=== PATIENT | female | born 1940 | race Asian ===

== ENCOUNTER 2021-09-15 10:01 | Inpatient (IN) | payer OTHER ==
[~2021-09-15] VITALS: Ht 165.1 cm; Wt 59.9 kg
--- NOTE | 2021-09-15 10:15 | NUR ---
[id number] FOR NOTED MORE ALTERED THAN NORMAL. LKW 0900. BG 107 QUILL LAYER PER REPORT, WENT BACK TO BED S/P BREAKFAST AND IS NOT RESPONDING TO STAFF. THE PATIENT IN ROOM AIR. RESPIRATION REGULAR AND UNLABORED. ATTACHED TO THE MONITOR. DR PRUITT AT THE BEDSIDE.
[2021-09-15] MEDS ORDERED: QUET25TA PO (10:17)
[2021-09-15] MEDS ORDERED: GABA-532 PO (10:17)
[2021-09-15] MEDS ORDERED: ALEN70TA80 PO (10:17)
[2021-09-15] MEDS ORDERED: DIGO125T PO (10:17)
[2021-09-15] MEDS ORDERED: MEMA10TA PO (10:17)
[2021-09-15] MEDS ORDERED: PRAV20TA4 PO (10:17)
[2021-09-15] MEDS ORDERED: BUPR150T10 PO (10:17)
[2021-09-15] MEDS ORDERED: CALC1TAB30 PO (10:17)
[2021-09-15] MEDS ORDERED: METO25TA20 PO (10:17)
[2021-09-15] MEDS ORDERED: WARF-58 PO (10:17)
--- NOTE | 2021-09-15 10:46 | NUR ---
PT TAKEN TO CT
--- NOTE | 2021-09-15 10:50 | NUR ---
TELE REQUEST SENT
[2021-09-15] MEDS ORDERED: IOHEXOL-350 100 ML VIAL IV ONE (10:51)
[2021-09-15] MEDS ORDERED: IV NS 0.9% 250 ML IV ONE (10:52)
[2021-09-15] MEDS ORDERED: CT SWABBABLE VALVE TRANS SET 1 EA INFUS.SET MC ONE (10:52)
--- NOTE | 2021-09-15 10:59 | NUR ---
THE PATIENT IS BACK FROM CT VIA [facility]
[2021-09-15 12:05] LABS: BASOPHILS % (AUTO) 0.8 % (0.0-2.0); EOSINOPHILS % (AUTO) 1.3 % (0.0-6.0); HEMATOCRIT 43 % (33-45); HEMOGLOBIN 14.4 g/dL (11.5-14.8); LYMPHOCYTES # (AUTO) 1.2 K/uL (0.8-4.8); LYMPHOCYTES % (AUTO) 26.8 % (20.0-44.0); MEAN CORPUSCULAR HGB CONC 33 g/dl (31.0-36.0); MEAN CORPUSCULAR VOLUME 99 fL (82-100); MONOCYTES # (AUTO) 0.4 K/uL (0.1-1.30); MONOCYTES % (AUTO) 9.3 % (2.0-12.0); NEUTROPHILS # (AUTO) 2.7 K/uL (1.8-8.9); NEUTROPHILS % (AUTO) 61.8 % (43.0-81.0); PLATELET COUNT (AUTO) 157 K/uL (150-450); RED BLOOD CELL COUNT(AUTO) 4.38 MIL/uL (4.0-5.2); WHITE BLOOD COUNT (AUTO) 4.4 K/uL (4.3-11.0)
--- NOTE | 2021-09-15 12:06 | NUR ---
URINE COLLECTED AND SENT TO THE LAB
[2021-09-15 12:22] LABS: ALANINE AMINOTRANSFERASE 17 U/L (12-78); ALBUMIN 3.5 g/dL (3.4-5.0); ALKALINE PHOSPHATASE 62 U/L (46-116); ASPARTATE AMINOTRANSFERASE 16 U/L (15-37); BILIRUBIN,DIRECT 0.2 mg/dL (0.0-0.2); BILIRUBIN,TOTAL 0.8 mg/dL (0.2-1.0); CALCIUM, SERUM 8.9 mg/dL (8.5-10.1); CARBON DIOXIDE 30 mmol/L (21-32); CHLORIDE 101 mmol/L (98-107); CREATININE 0.9 mg/dL (0.6-1.3); GLUCOSE 85 mg/dL (74-106); POTASSIUM 4.3 mmol/L (3.5-5.1); SODIUM SERUM 139 mmol/L (136-145); UREA NITROGEN, BLOOD 18 mg/dL (7-18)
[2021-09-15 12:30] LABS: THYROID STIMULATING HORMONE 1.558 uIU/mL (0.358-3.74)
[2021-09-15 12:31] LABS: ACETAMINOPHEN 0 ug/ml (10-30)
[2021-09-15 12:32] LABS: ALCOHOL, BLOOD < 3 mg/dL (0-0)
[2021-09-15 12:54] LABS: SERUM AMMONIA < 10 umol/L (11-32)
[2021-09-15 13:48] LABS: BILIRUBIN,URINE NEGATIVE (NEGATIVE); COLOR,URINE YELLOW (YELLOW); LEUKOCYTE ESTERASE ,URINE NEGATIVE (NEGATIVE); NITRITE, URINE NEGATIVE (NEGATIVE); PROTEIN,URINE NEGATIVE (NEGATIVE); UGLUCOSE NEGATIVE (NEGATIVE); UROBILINOGEN,URINE 0.2 EU/dL (0.2)
--- NOTE | 2021-09-15 14:19 | NUR ---
COVID ANTIGEN SWAB DONE AND SENT TO THE LAB.
--- NOTE | 2021-09-15 14:31 | NUR ---
Mat glover in [place] - 09/15/21 at 1431 by MICHAEL COVID ANTIGEN SWAB DONE AND SENT TO THE LAB
--- NOTE | 2021-09-15 15:16 | NUR ---
MRI OF THE BRAIN WO CONTRAST PER DR HERNANDEZ. THE ORDER IS READ BACK, VERIFIED. NOTED AND CARRIED OUT.
[2021-09-15] MEDS ORDERED: MAG HYDROX/AL HYDROX/SIMETH 30 ML UDC PO PRN (16:00)
[2021-09-15] MEDS ORDERED: ACETAMINOPHEN 325 MG TABLET PO PRN (16:00)
[2021-09-15] MEDS ORDERED: Z GUARD REMEDY 4 OZ OINT TP PRN (16:00)
[2021-09-15] MEDS ORDERED: ONDANSETRON HCL/PF 4 MG/2 ML VIAL IVP PRN (16:00)
[2021-09-15] MEDS: ASPIRIN 81 MG TAB.CHEW PO SCH (17:00)
[2021-09-15] MEDS ORDERED: ASPIRIN EC 81 MG TABLET.DR PO ONE (17:15)
[2021-09-15] MEDS ORDERED: METOPROLOL TARTRATE 25 MG TABLET ONE (17:15)
[2021-09-15] MEDS ORDERED: QUETIAPINE FUMARATE 25 MG TABLET ONE (17:16)
[2021-09-15] MEDS ORDERED: GABAPENTIN 100 MG CAPSULE ONE (17:16)
[2021-09-15] MEDS ORDERED: MEMANTINE HCL 5 MG TABLET ONE (17:17)
[2021-09-15] MEDS ORDERED: BUPROPION XL 150 MG TAB.ER.24 PO ONE (17:17)
[2021-09-15] MEDS: MEMANTINE HCL 5 MG TABLET PO SCH (17:19)
[2021-09-15] MEDS: buPROPion SR 150 MG TABLET.ER PO SCH (17:19)
[2021-09-15] MEDS: GABAPENTIN 100 MG CAPSULE PO SCH (17:19)
[2021-09-15] MEDS: QUETIAPINE FUMARATE 25 MG TABLET PO SCH (17:19)
[2021-09-15] MEDS: METOPROLOL TARTRATE 25 MG TABLET PO SCH (17:20)
--- NOTE | 2021-09-15 19:53 | NUR ---
REPORT GIVEN TO NURSE AUSTIN FOR SHARDA
--- NOTE | 2021-09-15 20:24 | NUR ---
TELE 328-2
--- NOTE | 2021-09-15 20:49 | NUR ---
report given to katarzyna britt
--- NOTE | 2021-09-15 20:53 | NUR ---
TRANSFERRING PT TO 328
--- NOTE | 2021-09-15 20:55 | NUR ---
TELE/DECKHAND SHRIMP BOAT NOTE RECEIVED PT FROM ER VIA GURNEY ACCOMPANIED BY STAFF/RN. PT AWAKE/VERBAL, ALERT TO NAME, HAS DIFFICULTY ANSWERING ORIENTATION QUESTIONS. ABLE TO FOLLOW COMMANDS. RESPIRATIONS EVEN/UNLABORED, TARIQ ROOM AIR WITH O2 SAT 98-99%. AMBULATES WITH SLOW STEADY GAIT, SUPERVISION PROVIDED FOR SAFETY. PROVIDED BEDSIDE COMMODE. NO IV SITE NOTED AT THIS TIME. CONNECTED TO TELE MONITOR, WITH READING A-FIB, HR 63. PT IN NO ACUTE DISTRESS. SAFETY MEASURES IN PLACE, BED IN LOWEST LOCKED POSITION, S/R UPX2, CALL LIGHT WITHIN REACH. WILL CONT TO MONITOR.
[2021-09-15 21:35] VITALS: BP 139/87
[2021-09-15] MEDS ORDERED: PRAVASTATIN SODIUM 20 MG TABLET PO SCH (22:00)
[2021-09-15] MEDS: ATORVASTATIN 40 MG TABLET PO SCH (22:39)
[2021-09-15] MEDS: ENOXAPARIN SODIUM 60 MG/0.6 ML DISP.SYRIN SQ SCH (22:43)
[2021-09-16] VITALS: BP 126/82
[2021-09-16 04:00] VITALS: BP 103/60
--- NOTE | 2021-09-16 06:00 | NUR ---
RN NOTE IV INSERTED TO R-FA #22G WITH GOOD BLOOD RETURN AND TARIQ WELL.
--- NOTE | 2021-09-16 07:00 | NUR ---
PATTERNMAKER WOOD CLOSING NOTES PT AWAKE IN BED, VERBALLY RESPONSIVE, WITH CONFUSION. REORIENTATION PROVIDED. PT DENIES ANY PAIN, DENIES SOB. USED BEDSIDE COMMODE TO VOID. TELE MONITOR READING A-FIB WITH PVC'S. PT IN NO ACUTE DISTRESS. SAFETY MEASURES MAINTAINED. ALL NEEDS ATTENDED TO.
--- NOTE | 2021-09-16 07:15 | NUR ---
OFFICE LEAD OPENING NOTES RECEIVED PATIENT IN BED AWAKE, NO SIGNS OF ACUTE DISTRESS NOTED. ON ROOM AIR TOLERATING WELL, NO SOB NOTED, BREATHING EVEN AND UNLABORED. WITH IV ACCESS ON RFA #20G INTACT AND PATENT, SL. ON TELE MONITOR WITH CURRENT READING OF SR @72. SAFETY MEASURES MAINTAINED. BED LOCKED AND IN LOWEST POSITION, SR UP, CALL LIGHT PLACED WITHIN EASY REACH. WILL CONTINUE TO MONITOR.
[2021-09-16 07:29] LABS: BASOPHILS % (AUTO) 0.7 % (0.0-2.0); EOSINOPHILS % (AUTO) 1.1 % (0.0-6.0); HEMATOCRIT 44 % (33-45); HEMOGLOBIN 14.2 g/dL (11.5-14.8); LYMPHOCYTES # (AUTO) 1.4 K/uL (0.8-4.8); LYMPHOCYTES % (AUTO) 28.5 % (20.0-44.0); MEAN CORPUSCULAR HGB CONC 33 g/dl (31.0-36.0); MEAN CORPUSCULAR VOLUME 99 fL (82-100); MONOCYTES # (AUTO) 0.4 K/uL (0.1-1.30); MONOCYTES % (AUTO) 8.3 % (2.0-12.0); NEUTROPHILS # (AUTO) 2.9 K/uL (1.8-8.9); NEUTROPHILS % (AUTO) 61.4 % (43.0-81.0); PLATELET COUNT (AUTO) 151 K/uL (150-450); WHITE BLOOD COUNT (AUTO) 4.8 K/uL (4.3-11.0)
[2021-09-16 07:49] LABS: CALCIUM, SERUM 9.1 mg/dL (8.5-10.1); CREATININE 0.9 mg/dL (0.6-1.3); MAGNESIUM 2.1 mg/dL (1.8-2.4); POTASSIUM 3.9 mmol/L (3.5-5.1)
[2021-09-16 08:54] VITALS: BP 133/73
[2021-09-16] MEDS: PANTOPRAZOLE 40 MG TABLET.DR PO SCH (08:57)
[2021-09-16] MEDS: CALCIUM CARB 250MG /VITAMIN D 1 UDTAB PO SCH (09:07)
[2021-09-16] MEDS: DIGOXIN 0.125 MG TABLET PO SCH (09:07)
[2021-09-16] MEDS: MEMANTINE HCL 5 MG TABLET PO SCH ×2 (09:07→16:18)
[2021-09-16] MEDS: buPROPion SR 150 MG TABLET.ER PO SCH ×2 (09:07→16:18)
[2021-09-16] MEDS: METOPROLOL TARTRATE 25 MG TABLET PO SCH ×2 (09:08→16:55)
[2021-09-16] MEDS: GABAPENTIN 100 MG CAPSULE PO SCH ×3 (09:08→16:18)
[2021-09-16] MEDS: ASPIRIN 81 MG TAB.CHEW PO SCH (09:09)
[2021-09-16] MEDS: ENOXAPARIN SODIUM 60 MG/0.6 ML DISP.SYRIN SQ SCH ×2 (09:14→21:23)
[2021-09-16] MEDS ORDERED: WARFARIN SODIUM 2.5 MG TABLET PO SCH (11:00)
[2021-09-16] MEDS ORDERED: WARFARIN SODIUM 5 MG TABLET PO SCH (11:00)
[2021-09-16 13:01] VITALS: BP 112/55
--- NOTE | 2021-09-16 13:07 | NUR ---
RN NOTES PATIENT PICKED-UP BY LATEXER FOR MRI OF BRAIN
[2021-09-16] MEDS ORDERED: ALENDRONATE 70 MG TABLET PO SCH (16:00)
[2021-09-16 16:17] VITALS: BP 128/63
[2021-09-16] MEDS: QUETIAPINE FUMARATE 25 MG TABLET PO SCH (17:01)
--- NOTE | 2021-09-16 18:51 | NUR ---
SPORTS FITNESS AND WELLNESS DIRECTOR OPENING NOTES PATIENT IN BED AWAKE, NO SIGNS OF ACUTE DISTRESS NOTED. REMAINS ON ROOM AIR TOLERATING WELL, NO SOB NOTED, BREATHING EVEN AND UNLABORED. WITH IV ACCESS ON RFA #20G INTACT AND PATENT, SL. ON TELE MONITOR WITH CURRENT READING OF AFIB @ 59. PATIENT NOTED WITH EPISODES OF REMOVING LEADS. RE ORIENTED NEEDED. ALL DUE MEDS GIVEN, TAKEN WELL. SAFETY MEASURES MAINTAINED. BED LOCKED AND IN LOWEST POSITION, BED ALARM ON, SR UP, CALL LIGHT PLACED WITHIN EASY REACH. WILL ENDORSE TO NEXT SHIFT. Addendum: 09/16/21 at 1912 by NITA OSORIO RN *SPORTS FITNESS AND WELLNESS DIRECTOR CLOSING NOTES*
--- NOTE | 2021-09-16 19:40 | NUR ---
CAR RENTAL SALES ASSISTANT NOTES AFIB-52 ON TELE MONITOR,ON BED SLEEPING ON SEMI FOWLERS POSITION,BREATHING REGULAR,NOT IN ANY FORM OF DISTRESS,A/O X1 PER REPORT,CONFUSED,WILL DO FREQUENT RE ORIENTATION.SALINE LOCK RFA INTACT AND PATENT,BED ALARM FOR FALL PRECAUTION,BED ON LOWEST POSITION AND LOCKED,CALL LIGHT IN REACH,NEEDS ANTICIPATED.
[2021-09-16 20:00] VITALS: BP 134/70
[2021-09-16] MEDS: ATORVASTATIN 40 MG TABLET PO SCH (21:22)
[2021-09-17] VITALS: BP 113/57
--- NOTE | 2021-09-17 06:34 | NUR ---
SPONGE MAKER NOTES FAIRLY RESTED AT NIGHT,NO FALL,NO INJURY,MED COMPLIANT.CALL LIGHT IN REACH,NEEDS ATTENDED.
[2021-09-17 07:16] LABS: BASOPHILS % (AUTO) 0.5 % (0.0-2.0); EOSINOPHILS % (AUTO) 2.2 % (0.0-6.0); HEMATOCRIT 43 % (33-45); HEMOGLOBIN 14.3 g/dL (11.5-14.8); LYMPHOCYTES # (AUTO) 1.5 K/uL (0.8-4.8); LYMPHOCYTES % (AUTO) 29.7 % (20.0-44.0); MEAN CORPUSCULAR HGB CONC 33 g/dl (31.0-36.0); MEAN CORPUSCULAR VOLUME 99 fL (82-100); MONOCYTES # (AUTO) 0.6 K/uL (0.1-1.30); NEUTROPHILS # (AUTO) 2.8 K/uL (1.8-8.9); NEUTROPHILS % (AUTO) 55.6 % (43.0-81.0); PLATELET COUNT (AUTO) 145 K/uL (150-450); RED BLOOD CELL COUNT(AUTO) 4.34 MIL/uL (4.0-5.2); WHITE BLOOD COUNT (AUTO) 5.1 K/uL (4.3-11.0)
--- NOTE | 2021-09-17 07:21 | NUR ---
FINISH REPAIR WORKER OPENING NOTES RECEIVED PATIENT IN BED AWAKE IN NO ACUTE SIGNS OF DISTRESS. A/O X2 WITH PERIODS OF CONFUSION AND FORGETFULNESS NOTED. VERBALLY RESPONSIVE, DENIES PAIN AT THIS TIME. ON ROOM AIR TOLERATING WELL, BREATHING EVEN AND UNLABORED. IV ACCESS ON RFA #20G INTACT AND PATENT, SL. ON TELE MONITOR WITH CURRENT READING OF A-FIB CONTROLLED WITH OCCASIONAL PVC'S, HR ON THE 60'S, NO C/O CARDIAC DISTRESS VOICED AT THIS TIME. SAFETY MEASURES MAINTAINED: BED LOCKED AND IN LOWEST POSITION, BED ALARM ON, SR UP X2, CALL LIGHT WITHIN EASY REACH. WILL CONTINUE TO MONITOR PT ACCORDINGLY..
[2021-09-17] MEDS: PANTOPRAZOLE 40 MG TABLET.DR PO SCH (07:50)
[2021-09-17 08:00] VITALS: BP 122/67
[2021-09-17] MEDS: CALCIUM CARB 250MG /VITAMIN D 1 UDTAB PO SCH (08:20)
[2021-09-17] MEDS: MEMANTINE HCL 5 MG TABLET PO SCH (08:20)
[2021-09-17] MEDS: buPROPion SR 150 MG TABLET.ER PO SCH (08:20)
[2021-09-17] MEDS: ASPIRIN 81 MG TAB.CHEW PO SCH (08:20)
[2021-09-17] MEDS: GABAPENTIN 100 MG CAPSULE PO SCH ×2 (08:20→12:24)
[2021-09-17 08:21] LABS: CALCIUM, SERUM 9.2 mg/dL (8.5-10.1); CREATININE 1.1 mg/dL (0.6-1.3); MAGNESIUM 2.2 mg/dL (1.8-2.4); POTASSIUM 4.3 mmol/L (3.5-5.1)
[2021-09-17] MEDS: ENOXAPARIN SODIUM 60 MG/0.6 ML DISP.SYRIN SQ SCH (08:22)
[2021-09-17] MEDS: METOPROLOL TARTRATE 25 MG TABLET PO SCH (08:24)
[2021-09-17] MEDS: DIGOXIN 0.125 MG TABLET PO SCH (08:24)
[2021-09-17 12:00] VITALS: BP 114/68
--- NOTE | 2021-09-17 15:59 | NUR ---
RN DISCHARGED NOTES PT DISCHARGED TO ASSISTED LIVING ([facility]) IN STABLE CONDITION. PT IS A/O X2. ABLE TO COMMUNICATE VERBALLY WITH CONFUSION AND FORGETFULNESS. V/S TAKEN, STABLE AND RECORDED. ALL BELONGINGS ACCOUNTED FOR AND SIGNED FORM. IV ACCESS ON RFA REMOVED WITH NO ACTIVE BLEEDING NOTED, DRY PRESSURE DRESSING APPLIED AT SITE. NAME ARMBAND REMOVED. HEALTH TEACHINGS GIVEN TO PT AND STATED "OK". PT LEFT UNIT VIA WHEELCHAIR AT 1545 ACCOMPANIED BY RAULITO MOSQUEDA. PT'S [facility]ICA [facility] IN THE LOBBY AND WILL TRANSPORT PT TO THE ASSISTED LIVING FACILITY. CHARGE NURSE AWARE OF DISCHARGE.
== END 2021-09-17 15:30 | DRG 69 ==
LOC: ER 10:10 → TRANSITION 15:08 → MED 20:27 → TELE 21:53 → MED 09-17 08:57
PROVIDERS: ADMIT Nurse Practitioner Family; ATTEND Nurse Practitioner Family
DX: G45.9 Transient cerebral ischemic attack, unspecified (principal); F03.90 Unspecified dementia, unspecified severity, without behavioral disturbance, psychotic disturbance, mood disturbance, and anxiety; I48.91 Unspecified atrial fibrillation; Z95.2 Presence of prosthetic heart valve; G62.9 Polyneuropathy, unspecified; Z79.01 Long term (current) use of anticoagulants; R79.1 Abnormal coagulation profile; Z20.822 Contact with and (suspected) exposure to COVID-19
CPT/HCPCS: 36415; 70450-TC; 70496-TC; 70498-TC; 70551-TC; 71045-TC; 80048-TC; 80061-TC; 80076-TC; 80162-TC; 82140-TC; 82962-TC; 83735-TC; 84443-TC; 84484-TC; 85025-TC; 85610-TC; 85730-TC; 87081-TC; 92526; 92611-TC; 93307-TC; 97116-TC; 97530-TC; G0378; G0480; J1650; J7050; Q9967